=== PATIENT | male | born 1955 | race African-American/Black ===

== ENCOUNTER 2017-06-30 17:27 | Emergency (ER) | payer BC ==
[~2017-06-30] VITALS: Ht 182.9 cm; Wt 87.1 kg
[2017-06-30 17:55] LABS: BILIRUBIN,URINE NEGATIVE (NEG); GLUCOSE,URINE NEGATIVE (NEG); NITRITE,URINE NEGATIVE (NEG); PROTEIN,URINE NEGATIVE (NEG-TRACE); UROBILINOGEN,URINE 0.2 mg/dL (0.2 mg/dL)
[2017-06-30 18:04] LABS: BACTERIA,URINE 0 /HPF (0-FEW); RBC,URINE OCC /HPF (0-2); SQUAMOUS EPITHELIAL CELL,UR FEW /LPF
[2017-06-30 18:11] VITALS: BP 174/92
[2017-06-30] MEDS ORDERED: AZITHROMYCIN 250 MG TABLET. PO ONE (18:15)
[2017-06-30] MEDS ORDERED: cefTRIAXone IM 250 MG VIAL IM ONE (18:15)
[2017-06-30] MEDS ORDERED: DOXY100T PO (18:28)
--- NOTE | 2017-06-30 18:29 | PHYS DOC ---
Past Medical History Past Medical History: No Pertinent History Past Surgical History: No Surgical History Additional Information: 1 PACK/WEEK Alcohol Use: Occasionally Drug Use: None Adult General Chief Complaint Chief Complaint: SEXUALLY TRANSMITTED DISEASE HPI HPI Patient is a 61 year old male presents the ED complaining of possible STD exposure 3 days ago. Patient states he was told by his sexual partner that she was having vaginal discharge and might have an STD. Patient states he wants to be treated for STDs. Denies any penile discharge, dysuria, hematuria, abdominal pain, testicular swelling, fever, chest pain or shortness of breath. Review of Systems Review of Systems Constitutional: Denies fever or chills [] Eyes: Denies change in visual acuity, redness, or eye pain [] HENT: Denies nasal congestion or sore throat [] Respiratory: Denies cough or shortness of breath [] Cardiovascular: No additional information not addressed in HPI [] GI: Denies abdominal pain, nausea, vomiting, bloody stools or diarrhea [] : Denies dysuria or hematuria [] Musculoskeletal: Denies back pain or joint pain [] Integument: Denies rash or skin lesions [] Neurologic: Denies headache, focal weakness or sensory changes [] Endocrine: Denies polyuria or polydipsia [] All other systems were reviewed and found to be within normal limits, except as documented in this note. Current Medications Current Medications Current Medications Medications (Trade) Dose Ordered Sig/Hector Start Time Stop Time Status Last Admin Dose Admin Azithromycin (Zithromax) 1,000 mg 1X ONCE 06/30/17 18:15 06/30/17 18:16 DC 06/30/17 18:17 1,000 MG Ceftriaxone Sodium (Rocephin Im) 250 mg 1X ONCE 06/30/17 18:15 06/30/17 18:16 DC 06/30/17 18:18 250 MG Allergies Allergies Allergies Coded Allergies Type Severity Reaction Last Updated Verified No Known Drug Allergies 06/30/17 No Physical Exam Physical Exam Constitutional: Well developed, well nourished, no acute distress, non-toxic appearance. [] HENT: Normocephalic, atraumatic, oropharynx moist Abdomen: Bowel sounds normal, soft, no tenderness, no masses, no pulsatile masses. [] Refused exam. Skin: Warm, dry, no erythema, no rash. [] Back: No tenderness, no CVA tenderness. [] Neurologic: Alert and oriented X 3, normal motor function, normal sensory function, no focal deficits noted. [] Psychologic: Affect normal, judgement normal, mood normal. [] Current Patient Data Vital Signs Vital Signs Date Time Temp Pulse Resp B/P (MAP) Pulse Ox O2 Delivery O2 Flow Rate FiO2 06/30/17 18:11 98.5 66 20 100 Room Air 98.5 Lab Values Laboratory Tests Test 06/30/17 17:38 Urine Collection Type Unknown Urine Color Yellow Urine Clarity Clear Urine pH 7.0 Urine Specific [place] 1.025 Urine Protein Negative mg/dL (NEG-TRACE) Urine Glucose (UA) Negative mg/dL (NEG) Urine Ketones (Stick) Negative mg/dL (NEG) Urine Blood Negative (NEG) Urine Nitrite Negative (NEG) Urine Bilirubin Negative (NEG) Urine Urobilinogen Dipstick 0.2 mg/dL (0.2 mg/dL) Urine Leukocyte Esterase Negative (NEG) Urine RBC Occ /HPF (0-2) Urine WBC 1-4 /HPF (0-4) Urine Squamous Epithelial Cells Few /LPF Urine Bacteria 0 /HPF (0-FEW) Urine Mucus Mod /LPF EKG EKG [] Radiology/Procedures Radiology/Procedures [] Course & Med Decision Making Course & Med Decision Making Pertinent Labs and Imaging studies reviewed. (See chart for details) []Gonorrhea and chlamydia culture pending. Patient treated with Rocephin and azithromycin in ED. Will treat outpatient with doxycycline. Will follow-up with patient in 3 days. Discussed safe sex practice. Discussed follow-up STD testing. Provided community resource handout. Discussed reasons to return to the ED. Patient understands and agrees with plan. Dragon Disclaimer Dragon Disclaimer This electronic medical record was generated, in whole or in part, using a voice recognition dictation system. Departure Departure Impression: Primary Impression: Possible exposure to STD Disposition: 01 HOME, SELF-CARE Condition: IMPROVED Referrals: NO PCP (PCP) VICENTE WILSON MD Patient Instructions: Sexually Transmitted Disease Scripts Doxycycline Hyclate (DOXYCYCLINE HYCLATE) 100 Mg Tablet 1 TAB PO BID, #14 TAB Prov: NATALIIA GRAHAM 06/30/17 NATALIIA GRAHAM Jun 30, 2017 18:29
== END 2017-06-30 18:31 | disposition home or self-care (01) ==
LOC: ER 17:27
DX: Z11.3 Encounter for screening for infections with a predominantly sexual mode of transmission (principal)
CPT/HCPCS: 81001; 87491; 87591; 96372; 99284; J0696; Q0144